=== PATIENT | male | born 1965 | race Caucasian/White ===

== ENCOUNTER 2021-03-02 17:44 | Emergency (ER) | payer OTHER ==
--- OUTSIDE RECORDS SUMMARY | 2021-03-02 17:48 | XMS REPORT | Continuity of Care Document ---
:1965 Author Organization [facility] t Address [address] [place] [address] Care Team Providers Name Role Phone Asked, Pcp Primary Care Physician Unavailable Problems Condition Condition Condition Status Onset Resolution Last Treating Co mments Source Name Details Category Date Date Treatment Clinician Date Laceration Laceration Disease Active [place] of finger of finger 05-05 Meth vandana of left of left 00:00: st hand hand 00 Allergies, Adverse Reactions, Alerts Allergy Allergy Status Severity Reaction(s) Onset Inactive Treating Comm ents Source Name Type Date Date Clinician Penicill Propensi Active [place] ins [place] to 05-07 Methodi adverse 00:00: st reaction 00 s to drug Social History Social Habit Start Date Stop Date Quantity Comments Source History of Cigar Smoker [place] [facility] tobacco use Alcohol intake 2017-05-07 2017-05-07 Current [facility] thodist 00:00:00 00:00:00 non-drinker of alcohol (finding) Sex Ass[birth year] At [birth year] [facility] ethodist 00:00:00 00:00:00 Smoking Status Start Date Stop Date Source Never smoker [place] Method[facility] t Medications Ordered Filled Start Stop Current Ordering Indication Dosage Frequency Signature Comments Components Source Medication Medication Date Date Medication? Clinician (SIG) Name Name cephalexin Yes [place] (KEFLEX) 6- [facility] 500 MG 00:00: st capsule 00 metFORMIN 2017-0 Yes [place] (GLUCOPHAGE 05-01 Methodi ) 1,000 mg 00:00: st tablet 00 Metformin Metformin Yes Aminta [address] [facility] HCl HCl Banda with a [facility] Procedures This patient has no known procedures. Plan of Care Planned Activity Planned Date Details Comments Source Future Scheduled 2021-06-25 INFLUENZA VACCINE [place] [facility] 00:00:00 [code = INFLUENZA VACCINE] Future Scheduled 2015 COLONOSCOPY SCREENING [place] [facility] 00:00:00 [code = COLONOSCOPY SCREENING] Future Scheduled 2015 SHINGLES VACCINES [place] [facility] 00:00:00 (#1) [code = SHINGLES VACCINES (#1)] Future Scheduled 1983 Hepatitis C screening [place] [facility] 00:00:00 (procedure) [code = 954125009] Future Scheduled 1981 COVID-19 VACCINE (1) [place] [facility] [facility] Test 00:00:00 [code = COVID-19 VACCINE (1)] Encounters Start End Encounter Admission Attending Care Care Encounter Source Date/Time Date/Time Type Type Clinicians Facility Department ID 2021-03-01 2021-03-01 Outpatient [facility] [id number] [facility] 2021-02-28 2021-02-28 Outpatient [facility] [id number] [facility] 2021-02-27 2021-02-27 Outpatient [facility] [id number] [facility] 2021-02-21 2021-02-21 Outpatient [facility] [id number] [facility] 2021-02-20 2021-02-20 Outpatient [facility] [id number] [facility] 2021-02-13 2021-02-13 Outpatient [facility] [id number] [facility] 2021-02-13 2021-02-13 [id number]00 [facility] Out[facility] Clinics 2020-02-18 2020-02-18 [facility] [id number] [facility] 10:40:00 10:40:00 t [facility] 2020-02-16 2020-02-16 [facility] [id number] 14:19:00 14:19:00 t [employer] [facility] 2018-11-04 2018-11-04 [facility] [id number] [address] 10:00:00 10:00:00 t Specialty/U [facility] - Specialty rology [facility] a [facility] l Clinic Outpati ent Clinics 2018-11-04 2018-11-04 [facility] [id number] 09:00:00 09:00:00 t [employer] [facility] Results This patient has no known results.
[2021-03-02] MEDS ORDERED: NA CHLORIDE 0.9% 1,000 ML ONE (20:03)
[2021-03-02 20:18] LABS: Absolute Lymphocytes (CBC) 2.3 K/uL (0.7-4.9); Basophils % 0.9 % (0-1.3); Hematocrit 37.2 % (39.6-49.0); Lymphocytes % 32.1 % (15.3-44.8); MPV 7.4 fL (7.6-11.3); RBC Red Blood Cell Count 4.39 M/uL (4.33-5.43)
[2021-03-02 20:33] LABS: Protime INR 0.94
[2021-03-02 20:44] LABS: ALT/SGPT 23 U/L (12-78); AST/SGOT 12 U/L (15-37); Albumin 3.2 g/dL (3.4-5.0); Alkaline Phosphatase 88 U/L (45-117); BUN Blood Urea Nitrogen 15 mg/dL (7-18); Bicarbonate 26 mmol/L (21-32); Bilirubin Direct 0.2 mg/dL (0-0.2); Bilirubin Total 0.8 mg/dL (0.2-1.0); Glucose Level 253 mg/dL (74-106); Lipase 82 U/L (73-393); Potassium 3.8 mmol/L (3.5-5.1); Protein, Total 6.8 g/dL (6.4-8.2); Sodium Level 137 mmol/L (136-145)
--- NOTE | 2021-03-02 21:22 | RAD REPORT ---
EXAM DESCRIPTION: CTAbdomen Pelvis W Contrast - 03/02/2021 9:05 pm CLINICAL HISTORY: Abdominal pain. ABD PAIN COMPARISON: No comparisons TECHNIQUE: Biphasic CT imaging of the abdomen and pelvis was performed with 100 ml non-ionic IV cont rast. All CT scans are performed using dose optimization technique as appropriate and may include automated exposure control or mA/KV adjustment according to patient size. FINDINGS: The lung bases are clear.Cholelithiasis. The liver, spleen, pancreas, adrenal glands and kidneys are within normal limits. No bowel obstruction, free air, free fluid or abscess. The appendix is normal. No evidence of signi ficant lymphadenopathy. There is thickening of the rectal mucosa is seen with several small perirecta l lymph nodes. No suspicious bony findings. IMPRESSION: No acute intra-abdominal or pelvic finding. Thickening of the rectal mucosa is seen with several small perirectal lymph nodes. Inflammation versu s neoplasia is the primary consideration. Followup colonoscopy would be recommended.
--- NOTE | 2021-03-02 22:51 | EDPHYS ---
Physician Documentation [facility] Name: Martha Todd Age: 56 yrs Sex: Male : 1965 Arrival Date: 03/02/2021 Time: 17:45 Bed 13 Private MD: Wes Woosd ED Physician Kathy John HPI: 03/02 22:34 This 56 yrs old Male presents to ER via Wheelchair with complaints of Rectal ma2 Bleeding. 22:34 The patient presents to the emergency department with pain in the rectal area. Onset: ma2 The symptoms/episode began/occurred suddenly, 1 day(s) ago. Associate signs and symptoms: Pertinent negatives: abdominal pain, constipation, diarrhea, fever, lower GI bleeding. The patient has not experienced similar symptoms in the past. patient has hx of hemorrhoid that is occasional comes out of the anus and become external and it stays internal most of the time. he has saw gi doctor dr. Leach today because he has episode of rectal bleeding. the doctor advise him to check with his pcp and control blood sugar and then return to him, she also ordered CT abdomin. he went home and had another episode of rectal bleeding. he came to er for further evaluation. he has no rectal bleeding since then or any other symptoms, no melena or gi bleeding in the past he does not take any blood thinner. . Historical: - Allergies: 18:38 PENICILLINS; iw - Home Meds: 18:38 Flomax 0.4 mg Oral cp24 1 cap once daily [Active]; metformin 1,000 mg oral tab 2 times iw per day [Active]; - PMHx: 18:38 Diabetes - NIDDM; iw - PSHx: 18:38 None; iw - Social history:: Smoking status: . - Family history:: not pertinent. ROS: 22:34 Constitutional: Negative for fever, chills, and weight loss. ma2 22:34 All other systems are negative. Exam: 22:34 Constitutional: This is a well developed, well nourished patient who is awake, alert, ma2 and in no acute distress. Head/Face: Normocephalic, atraumatic. Eyes: Pupils equal round and reactive to light, extra-ocular motions intact. Lids and lashes normal. Conjunctiva and sclera are non-icteric and not injected. Cornea within normal limits. Periorbital areas with no swelling, redness, or edema. ENT: Nares patent. No nasal discharge, no septal abnormalities noted. Tympanic membranes are normal and external auditory canals are clear. Oropharynx with no redness, swelling, or masses, exudates, or evidence of obstruction, uvula midline. Mucous membranes moist. Neck: Trachea midline, no thyromegaly or masses palpated, and no cervical lymphadenopathy. Supple, full range of motion without nuchal rigidity, or vertebral point tenderness. No Meningismus. Chest/axilla: Normal chest wall appearance and motion. Nontender with no deformity. No lesions are appreciated. Cardiovascular: Regular rate and rhythm with a normal S1 and S2. No gallops, murmurs, or rubs. Normal PMI, no JVD. No pulse deficits. Respiratory: Lungs have equal breath sounds bilaterally, clear to auscultation and percussion. No rales, rhonchi or wheezes noted. No increased work of breathing, no retractions or nasal flaring. Abdomen/GI: Soft, non-tender, with normal bowel sounds. No distension or tympany. No guarding or rebound. No evidence of tenderness throughout. Back: No spinal tenderness. No costovertebral tenderness. Full range of motion. Skin: Warm, dry with normal turgor. Normal color with no rashes, no lesions, and no evidence of cellulitis. MS/ Extremity: Pulses equal, no cyanosis. Neurovascular intact. Full, normal range of motion. Neuro: Awake and alert, GCS 15, oriented to person, place, time, and situation. Cranial nerves II-XII grossly intact. Motor strength 5/5 in all extremities. Sensory grossly intact. Cerebellar exam normal. Normal gait. 22:34 : Male external genitalia: normal, Bladder: is normal, Rectal exam: Rectal tone: normal, Perineal sensation Normal Stool: normal, brown, Prostate: normal, hemorrhoid(s), internal, are present, thrombosed, mass, is not appreciated, fissure, is not appreciated, the nurse was present for the exam. Vital Signs: 18:35 BP 134 / 85; Pulse 95; Resp 16; Temp 98.4; Pulse Ox 99% on R/A; Weight 97.52 kg; Height iw 5 ft. 10 in. (177.80 cm); 20:00 BP 122 / 76; Pulse 76; Resp 16; Pulse Ox 96% on R/A; jb4 21:54 BP 134 / 78; Pulse 69; Resp 16; Pulse Ox 100% on R/A; jb4 18:35 Body Mass Index 30.85 (97.52 kg, 177.80 cm) iw MDM: 19:16 Patient medically screened. ma2 22:34 Differential diagnosis: hemorrhoids. Data reviewed: vital signs, nurses notes. ma2 Counseling: I had a detailed discussion with the patient and/or guardian regarding: the historical points, exam findings, and any diagnostic results supporting the discharge/admit diagnosis, the presence of at least one elevated blood pressure reading (>120/80) during this emergency department visit, the need for outpatient follow up. ED course: patient has internal hemorroid that is likely thrombosed as it is semi -firm however not painful, he has no active bleeding in er. ct is repeated here and non critical. hb is 13. dr. woods advised that hb was 14 yesterday. hwoever no active bleeding at this time. i paged dr. Zuniga twice with no answer. Called dr. Jarrell office and oncall gi dr. Salazar called back and advised that there is no mass on his exam or imaging and he is happy to see him in the office if no active bleeding in er. I called dr. gottlieb as well and he is available on Saturday for colonoscopy and he is happy to see the patient on Saturday. patient would like to go home as there is no active bleeding and he has been walking in the er comfortably. I explained need to return to er if bleeding recur. in that case he need to be admitted and dr. gottlieb is happy to do colonoscopy on Saturday. . 03/02 19:33 Order name: Basic Metabolic Panel nj2 03/02 19:33 Order name: CBC with Diff 2 03/02 19:33 Order name: Hepatic Function nj2 03/02 19:33 Order name: Lipase nj2 03/02 19:33 Order name: PT-INR nj2 03/02 19:33 Order name: Type And Screen nj2 03/02 19:33 Order name: Ptt, Activated nj2 03/02 20:27 Order name: CBC with Automated Diff; Complete Time: 20:57 EDMS 03/02 20:34 Order name: Protime (+INR); Complete Time: 20:57 EDMS 03/02 20:34 Order name: PTT, Activated Partial Thromb; Complete Time: 20:57 EDMS 03/02 20:44 Order name: Basic Metabolic Panel; Complete Time: 20:57 EDMS 03/02 20:44 Order name: Liver (Hepatic) Function; Complete Time: 20:57 EDMS 03/02 20:44 Order name: Lipase; Complete Time: 20:57 EDMS 03/02 20:55 Order name: Type and Screen; Complete Time: 20:57 EDMS 03/02 19:33 Order name: IV Saline Lock; Complete Time: 19:52 [facility] 03/02 19:33 Order name: Labs collected and sent; Complete Time: 19:52 [facility] 03/02 19:33 Order name: CT Abd/Pelvis - IV Contrast Only [facility] 03/02 21:23 Order name: CT; Complete Time: 21:47 EDMS 03/02 21:36 Order name: ABO/RH no charge; Complete Time: 21:47 EDMS Administered Medications: 19:59 Drug: NS 0.9% 1000 ml Route: IV; Rate: 1 bolus; Site: right wrist; jb4 21:00 Follow up: Response: No adverse reaction; IV Status: Completed infusion; IV Intake: jb4 1000ml 20:47 Not Given (Physician Discretion): NS 0.9% 1000 ml IV at 1 bolus Per protocol; 1000 mL jb4 bolus Disposition: 03/02/21 22:50 Discharged to Home. Impression: Unspecified hemorrhoids. - Condition is Stable. - Discharge Instructions: Hemorrhoids, [id number], Disposable Sitz Bath, Colonoscopy, [id number]-[id number]. - Medication Reconciliation Form, Thank You Letter, Antibiotic Education, Prescription Opioid Use form. - Follow up: Private Physician; When: Tomorrow; Reason: If symptoms return, Continuance of care. Follow up: Patrick Chavarria MD; When: 03/06/2021; Reason: Continuance of care. - Notes: return to er for any further bleeding Signatures: Dispatcher [employer] EDMS Jory Metz RN RN iw Bryson, James, RN RN jb4 Kathy John MD MD ma2 Corrections: (The following items were deleted from the chart) 22:52 22:50 03/02/2021 22:50 Discharged to Home. Impression: Unspecified hemorrhoids. ma2 Condition is Stable. Forms are Medication Reconciliation Form, Thank You Letter, Antibiotic Education, Prescription Opioid Use. Follow up: Private Physician; When: Tomorrow; Reason: If symptoms return, Continuance of care. ma2 23:11 22:52 03/02/2021 22:50 Discharged to Home. Impression: Unspecified hemorrhoids. jb4 Condition is Stable. Discharge Instructions: Hemorrhoids, [id number], Disposable Sitz Bath, Colonoscopy, Jipw-ol-Yqsp. Forms are Medication Reconciliation Form, Thank You Letter, Antibiotic Education, Prescription Opioid Use. Follow up: Private Physician; When: Tomorrow; Reason: If symptoms return, Continuance of care. Follow up: Patrick Chavarria; When: 03/06/2021; Reason: Continuance of care. ma2
--- NOTE | 2021-03-02 22:51 | ER ---
Nurse's Notes [facility] Name: Martha Todd Age: 56 yrs Sex: Male : 1965 Arrival Date: 03/02/2021 Time: 17:45 Bed 13 Private MD: Wes Kaye Diagnosis: Unspecified hemorrhoids Presentation: 03/02 18:35 Chief complaint: Spouse and/or significant other states: for a month and half has had iw hemorrhoids, then couldn't urinate, had cooley for a bout a week, started on flomax, had MRI Saturday, has a large polyp in rectum , heavy rectal bleeding this afternoon, was seen at urologist today, had large clots. Coronavirus screen: At this time, the client does not indicate any symptoms associated with coronavirus-19. Ebola Screen: Patient negative for fever greater than or equal to 101.5 degrees Fahrenheit, and additional compatible Ebola Virus Disease symptoms Patient denies exposure to infectious person. Patient denies travel to an Ebola-affected area in the 21 days before illness onset. No symptoms or risks identified at this time. Initial Sepsis Screen: Does the patient meet any 2 criteria? No. Patient's initial sepsis screen is negative. Does the patient have a suspected source of infection? No. Patient's initial sepsis screen is negative. Risk Assessment: Do you want to hurt yourself or someone else? Patient reports no desire to harm self or others. Onset of symptoms was March 02, 2021. 18:35 Method Of Arrival: Wheelchair iw 18:35 Acuity: BRITTA 2 iw Historical: - Allergies: 18:38 PENICILLINS; iw - Home Meds: 18:38 Flomax 0.4 mg Oral cp24 1 cap once daily [Active]; metformin 1,000 mg oral tab 2 times iw per day [Active]; - PMHx: 18:38 Diabetes - NIDDM; iw - PSHx: 18:38 None; iw - Social history:: Smoking status: . - Family history:: not pertinent. Screenin:20 Abuse screen: Denies threats or abuse. Nutritional screening: No deficits noted. jb4 Tuberculosis screening: No symptoms or risk factors identified. Fall Risk None identified. Assessment: 19:20 General: Appears in no apparent distress. uncomfortable, Behavior is calm, cooperative, jb4 appropriate for age. Pain: Complains of pain in left lower quadrant Pain does not radiate. Pain currently is 3 out of 10 on a pain scale. Quality of pain is described as aching. Neuro: Level of Consciousness is awake, alert, obeys commands, Oriented to person, place, time, situation. Cardiovascular: Patient's skin is warm and dry. Respiratory: Airway is patent Respiratory effort is even, unlabored, Respiratory pattern is regular, symmetrical. GI: No signs and/or symptoms were reported involving the gastrointestinal system. Abdomen is round non-distended, Abd is soft X 4 quads Abd is non tender in right upper quadrant, left upper quadrant and right lower quadrant Abdomen is tender to palpation in left lower quadrant Reports bloody stool. : Reports intermittent inability to void. EENT: No signs and/or symptoms were reported regarding the EENT system. Derm: Skin is intact, Skin is pink, warm \T\ dry. Musculoskeletal: No signs and/or symptoms reported regarding the musculoskeletal system. 20:15 Reassessment: Patient appears in no apparent distress at this time. Patient and/or jb4 family updated on plan of care and expected duration. Pain level reassessed. Patient is alert, oriented x 3, equal unlabored respirations, skin warm/dry/pink. 21:00 Reassessment: Patient appears in no apparent distress at this time. Patient and/or jb4 family updated on plan of care and expected duration. Pain level reassessed. Patient is alert, oriented x 3, equal unlabored respirations, skin warm/dry/pink. 21:56 Reassessment: Patient appears in no apparent distress at this time. Patient and/or jb4 family updated on plan of care and expected duration. Pain level reassessed. Patient is alert, oriented x 3, equal unlabored respirations, skin warm/dry/pink. 22:43 Reassessment: Patient appears in no apparent distress at this time. Patient and/or jb4 family updated on plan of care and expected duration. Pain level reassessed. Patient is alert, oriented x 3, equal unlabored respirations, skin warm/dry/pink. PT reports being able to ambulate without loosing control of bowels and that bloody bowel movements have improved. Patient states feeling better. Vital Signs: 18:35 BP 134 / 85; Pulse 95; Resp 16; Temp 98.4; Pulse Ox 99% on R/A; Weight 97.52 kg; Height iw 5 ft. 10 in. (177.80 cm); 20:00 BP 122 / 76; Pulse 76; Resp 16; Pulse Ox 96% on R/A; jb4 21:54 BP 134 / 78; Pulse 69; Resp 16; Pulse Ox 100% on R/A; jb4 18:35 Body Mass Index 30.85 (97.52 kg, 177.80 cm) ED Course: 17:45 Patient arrived in ED. am2 17:45 Wes Kaye DO is Private Physician. am2 18:37 Triage completed. iw 19:16 Kathy John MD is Attending Physician. ma2 19:20 Patient has correct armband on for positive identification. Placed in gown. Bed in low jb4 position. Call light in reach. Side rails up X 1. Pulse ox on. NIBP on. 19:32 Migel Matt RN is Primary Nurse. jb4 19:52 Initial lab(s) drawn, by de, sent to lab. Inserted saline lock: 18 gauge in right ca1 forearm, using aseptic technique. Blood collected. 22:52 Patrick Chavarria MD is Referral Physician. ma2 23:11 No provider procedures requiring assistance completed. Patient did not have IV access jb4 during this emergency room visit. Administered Medications: 19:59 Drug: NS 0.9% 1000 ml Route: IV; Rate: 1 bolus; Site: right wrist; jb4 21:00 Follow up: Response: No adverse reaction; IV Status: Completed infusion; IV Intake: jb4 1000ml 20:47 Not Given (Physician Discretion): NS 0.9% 1000 ml IV at 1 bolus Per protocol; 1000 mL jb4 bolus Intake: 21:00 IV: 1000ml; Total: 1000ml. jb4 Outcome: 22:50 Discharge ordered by . ma2 23:11 Discharged to home ambulatory, with family. jb4 23:11 Condition: stable 23:11 Discharge instructions given to patient, Instructed on discharge instructions, follow up and referral plans. Demonstrated understanding of instructions, follow-up care. 23:11 Patient left the ED. jb4 Signatures: Jory Metz RN RN Migel Matt RN RN jb4 Blanca Jones am2 Kathy John MD MD ma2 Dariela Chandler RN RN ca1 Corrections: (The following items were deleted from the chart) 22:44 19:20 GI: No signs and/or symptoms were reported involving the gastrointestinal system. jb4 Abdomen is round non-distended, Abd is soft X 4 quads Abd is non tender in right upper quadrant, left upper quadrant and right lower quadrant Abdomen is tender to palpation in left lower quadrant jb4
== END 2021-03-02 23:11 | disposition home or self-care (01) ==
LOC: ER 17:44
DX: K64.9 Unspecified hemorrhoids (principal); E11.9 Type 2 diabetes mellitus without complications; Z88.0 Allergy status to penicillin
CPT/HCPCS: 85025; 80048; 36415; 86900; 86850; 85610; 86901; 80076; 85730; 83690; 74177; 96360; 99284; Q9967; J7030